=== PATIENT | female | born 1975 | race Caucasian/White ===

== ENCOUNTER 2019-09-18 21:59 | Emergency (ER) | payer MEDICAID ==
[~2019-09-18] VITALS: Ht 144.8 cm; Wt 75.9 kg
[2019-09-18] MEDS ORDERED: LIDOCAINE 5% TRANSDERMAL PATCH TD ONE (23:15)
[2019-09-18] MEDS ORDERED: CYCLOBENZAPRINE HCL 10 MG TABLET PO ONE (23:15)
[2019-09-18] MEDS ORDERED: KETOROLAC TROMETHAMINE 30 MG/ML VIAL IM ONE (23:15)
[2019-09-18] MEDS ORDERED: ACETAMINOPHEN 500 MG TABLET PO ONE (23:15)
[2019-09-19 00:39] VITALS: BP 127/77
== END 2019-09-19 00:30 | disposition home or self-care (01) ==
LOC: EMS 21:59
DX: M54.6 Pain in thoracic spine (principal); M79.602 Pain in left arm; M79.10 Myalgia, unspecified site; G47.00 Insomnia, unspecified
CPT/HCPCS: 96372; 99284; J1885